=== PATIENT | male | born 1955 | race Two or more races ===

== ENCOUNTER 2017-11-06 13:22 | Inpatient (IN) | payer OTHER ==
[~2017-11-06] VITALS: Ht 177.8 cm; Wt 70.5 kg
[~2017-11-06 13:22] MED LIST: CEFTAROLINE; CHOL239. PO; DARB60VI SQ; DIAZ5VIA3 IV; ERGO500017 PO; PANT40VI IV; PRED20TA PO; SEVE2.4P NG; acyclovir
[2017-11-06] MEDS ORDERED: SODIUM CHLORIDE FLUSH 10ML SYR IVF ONE (14:00)
[2017-11-06 14:04] LABS: BASOPHILS # (AUTO) 0.02 x10^3/uL (0-0.1); BASOPHILS % (AUTO) 0 % (0-1); EOSINOPHILS # (AUTO) 0.01 x10^3/uL (0-0.4); EOSINOPHILS % (AUTO) 0 % (1-7); LYMPHOCYTES # (AUTO) 1.86 x10^3/uL (1-3.4); LYMPHOCYTES % (AUTO) 14 % (22-44); MD NO; MEAN CORPUSCULAR HEMOGLOBIN 33.3 pg (27.5-34.5); MEAN CORPUSCULAR HGB CONC 35.6 g/dL (33.2-36.2); MEAN CORPUSCULAR VOLUME 93.5 fL (81-97); MEAN PLATELET VOLUME 8.8 fL (7.4-10.4); MONOCYTES # (AUTO) 0.22 x10^3/uL (0.2-0.8); MONOCYTES % (AUTO) 2 % (2-9); NEUTROPHILS # (AUTO) 11.45 x10^3/uL (1.8-6.8); NEUTROPHILS % (AUTO) 85 % (42-75); PLATELET COUNT 233 x10^3/uL (130-400); RED BLOOD COUNT 3.51 x10^6/uL (4.38-5.82); RED CELL DISTRIBUTION WIDTH 12.7 % (9.4-14.8)
[2017-11-06 14:16] LABS: ALANINE AMINOTRANSFERASE 22 U/L (12-78); ALBUMIN 3.3 g/dL (3.4-5.0); ANION GAP 13 mmol/L (5-15); CHLORIDE 103 mmol/L (98-107); CREATININE 1.31 mg/dL (0.7-1.3)
[2017-11-06 14:17] LABS: ALKALINE PHOSPHATASE 93 U/L (45-117); BILIRUBIN,TOTAL 1.3 mg/dL (0.2-1.0); TOTAL PROTEIN 8.6 g/dL (6.4-8.2)
[2017-11-06 14:18] LABS: TROPONIN I < 0.015 ng/mL (0.000-0.045)
[2017-11-06 14:21] LABS: INTERNATIONAL NORMALIZED RATIO 1.15 (0.93-1.1); PROTHROMBIN TIME 11.9 Seconds (9.6-11.5)
[2017-11-06] MEDS ORDERED: CEFTRIAXONE 1,000 MG in SODIUM CHLORIDE 0.9% 50 ML IVPB ONE (14:30)
[2017-11-06] MEDS ORDERED: ASPIRIN 81 MG TABLET CHEW ONE (14:30)
[2017-11-06] MEDS ORDERED: SODIUM CHLORIDE 0.9% 1,000ML IVBOLUS ONE (14:30)
[2017-11-06] MEDS ORDERED: AZITHROMYCIN 500 MG in SODIUM CHLORIDE 0.9% 250 ML IVPB ONE (14:30)
[2017-11-06] MEDS ORDERED: ASPIRIN 81 MG TABLET CHEW PO ONE (14:30)
[2017-11-06] MEDS ORDERED: CEFTRIAXONE PMX 1GM/50ML 50 ML ONE (14:30)
[2017-11-06] MEDS ORDERED: SODIUM CHLORIDE FLUSH 10ML SYR IVF PRN (15:30)
[2017-11-06 16:51] VITALS: BP 106/68
[2017-11-06 16:59] VITALS: BP 106/68
[2017-11-06] MEDS ORDERED: ALBUTEROL/IPRATROPIUM 2.5MG/0.5MG, 3 ML ONE (17:45)
[2017-11-06] MEDS ORDERED: ONDANSETRON 2MG/ML, 2ML IVPush PRN (18:00)
[2017-11-06] MEDS ORDERED: LABETALOL 5MG/ML, 20ML IVPush PRN (18:00)
[2017-11-06] MEDS ORDERED: ALBUTEROL/IPRATROPIUM 2.5MG/0.5MG, 3 ML NPPB PRN (18:00)
[2017-11-06] MEDS ORDERED: POLYETHYLENE GLYCOL 17 GM PACKET PO PRN (18:00)
[2017-11-06] MEDS: SODIUM CHLORIDE 0.9% 1,000 ML IV SCH (18:08)
[2017-11-06] MEDS: DOXYCYCLINE 100 MG in DEXTROSE 5% 250 ML IV SCH (18:09)
[2017-11-06] MEDS: ENOXAPARIN 40 MG/0.4 ML SQ SCH (18:10)
[2017-11-06 18:46] LABS: % IRON SATURATION 11 % (20-55); IRON LEVEL 21 mcg/dL (65-175); TOTAL IRON BINDING CAPACITY 200 mcg/dL (250-450)
[2017-11-06 19:04] VITALS: BP 107/63
[2017-11-06] MEDS: ALBUTEROL/IPRATROPIUM 2.5MG/0.5MG, 3 ML NPPB SCH (21:00)
[2017-11-06] MEDS: HYDROcodone/CHLORPHENIR ORAL SUSP PO PRN (21:03)
[2017-11-06] MEDS: ZOLPIDEM 5MG TABLET PO PRN (21:03)
[2017-11-06] MEDS: morphine SULFATE 10 MG/ML, 1ML IVPush PRN (23:13)
[2017-11-07] MEDS ORDERED: OMNIPAQUE 350 MG/ML, 100ML BOTTLE ONE (01:43)
[2017-11-07 03:36] VITALS: BP 102/61
[2017-11-07] MEDS: morphine SULFATE 10 MG/ML, 1ML IVPush PRN (04:00)
[2017-11-07] MEDS: SODIUM CHLORIDE 0.9% 1,000 ML IV SCH ×2 (04:04→11:53)
[2017-11-07 05:34] LABS: CHLORIDE 108 mmol/L (98-107)
[2017-11-07 05:35] LABS: BASOPHILS # (AUTO) 0.03 x10^3/uL (0-0.1); BASOPHILS % (AUTO) 1 % (0-1); EOSINOPHILS # (AUTO) 0.07 x10^3/uL (0-0.4); EOSINOPHILS % (AUTO) 1 % (1-7); LYMPHOCYTES # (AUTO) 2.07 x10^3/uL (1-3.4); LYMPHOCYTES % (AUTO) 30 % (22-44); MD NO; MEAN CORPUSCULAR HEMOGLOBIN 32.9 pg (27.5-34.5); MEAN CORPUSCULAR HGB CONC 34.9 g/dL (33.2-36.2); MEAN CORPUSCULAR VOLUME 94.4 fL (81-97); MEAN PLATELET VOLUME 8.3 fL (7.4-10.4); MONOCYTES # (AUTO) 0.38 x10^3/uL (0.2-0.8); MONOCYTES % (AUTO) 6 % (2-9); NEUTROPHILS # (AUTO) 4.35 x10^3/uL (1.8-6.8); NEUTROPHILS % (AUTO) 63 % (42-75); PLATELET COUNT 157 x10^3/uL (130-400); RED BLOOD COUNT 2.58 x10^6/uL (4.38-5.82); RED CELL DISTRIBUTION WIDTH 13.1 % (9.4-14.8)
[2017-11-07 05:41] LABS: ANION GAP 9 mmol/L (5-15); CALCIUM 8.1 mg/dL (8.5-10.1); CREATININE 0.76 mg/dL (0.7-1.3)
[2017-11-07 05:42] LABS: ALANINE AMINOTRANSFERASE 22 U/L (12-78); ALBUMIN 2.3 g/dL (3.4-5.0); ALKALINE PHOSPHATASE 69 U/L (45-117); TOTAL PROTEIN 6.6 g/dL (6.4-8.2)
[2017-11-07] MEDS: DOXYCYCLINE 100 MG in DEXTROSE 5% 250 ML IV SCH ×2 (06:14→17:27)
[2017-11-07] MEDS: ALBUTEROL/IPRATROPIUM 2.5MG/0.5MG, 3 ML NPPB SCH ×4 (07:00→20:10)
[2017-11-07 07:02] VITALS: BP 94/52
[2017-11-07 12:20] VITALS: BP 97/55
[2017-11-07] MEDS: CEFTRIAXONE 1,000 MG in SODIUM CHLORIDE 0.9% 50 ML IV SCH (13:24)
[2017-11-07] MEDS: ACETAMINOPHEN 325 MG TABLET PO PRN ×2 (13:32→20:33)
[2017-11-07] MEDS: HYDROcodone/CHLORPHENIR ORAL SUSP PO PRN (13:32)
[2017-11-07] MEDS: BENZONATATE 100 MG CAPSULE PO SCH ×2 (17:26→20:33)
[2017-11-07] MEDS: ENOXAPARIN 40 MG/0.4 ML SQ SCH (17:27)
[2017-11-07 20:03] VITALS: BP 102/58
[2017-11-07] MEDS: ZOLPIDEM 5MG TABLET PO PRN (20:33)
[2017-11-08 00:22] VITALS: BP 110/71
[2017-11-08] MEDS: ACETAMINOPHEN 325 MG TABLET PO PRN (02:32)
[2017-11-08 05:35] LABS: BASOPHILS # (AUTO) 0.03 x10^3/uL (0-0.1); BASOPHILS % (AUTO) 1 % (0-1); EOSINOPHILS # (AUTO) 0.08 x10^3/uL (0-0.4); EOSINOPHILS % (AUTO) 2 % (1-7); LYMPHOCYTES # (AUTO) 1.35 x10^3/uL (1-3.4); LYMPHOCYTES % (AUTO) 31 % (22-44); MD NO; MEAN CORPUSCULAR HGB CONC 35.1 g/dL (33.2-36.2); MEAN CORPUSCULAR VOLUME 94.2 fL (81-97); MEAN PLATELET VOLUME 8.4 fL (7.4-10.4); MONOCYTES # (AUTO) 0.23 x10^3/uL (0.2-0.8); MONOCYTES % (AUTO) 5 % (2-9); NEUTROPHILS # (AUTO) 2.65 x10^3/uL (1.8-6.8); NEUTROPHILS % (AUTO) 61 % (42-75); PLATELET COUNT 163 x10^3/uL (130-400); RED BLOOD COUNT 2.64 x10^6/uL (4.38-5.82)
[2017-11-08 05:45] LABS: CHLORIDE 112 mmol/L (98-107)
[2017-11-08 05:53] LABS: ALBUMIN 2.3 g/dL (3.4-5.0); ANION GAP 12 mmol/L (5-15); CREATININE 0.67 mg/dL (0.7-1.3)
[2017-11-08] MEDS: DOXYCYCLINE 100 MG in DEXTROSE 5% 250 ML IV SCH ×2 (06:13→17:07)
[2017-11-08 06:40] VITALS: BP 96/62
[2017-11-08] MEDS: BENZONATATE 100 MG CAPSULE PO SCH ×3 (08:01→20:24)
[2017-11-08] MEDS: ALBUTEROL/IPRATROPIUM 2.5MG/0.5MG, 3 ML NPPB SCH ×4 (08:30→20:00)
[2017-11-08 12:15] VITALS: BP 112/70
[2017-11-08] MEDS: CEFTRIAXONE 1,000 MG in SODIUM CHLORIDE 0.9% 50 ML IV SCH (14:01)
[2017-11-08] MEDS: ENOXAPARIN 40 MG/0.4 ML SQ SCH (17:07)
[2017-11-08 19:47] VITALS: BP 115/72
[2017-11-08] MEDS: ZOLPIDEM 5MG TABLET PO PRN ×2 (20:24→22:17)
[2017-11-09 01:45] VITALS: BP 137/74
[2017-11-09 05:00] LABS: BASOPHILS # (AUTO) 0.04 x10^3/uL (0-0.1); BASOPHILS % (AUTO) 1 % (0-1); EOSINOPHILS # (AUTO) 0.12 x10^3/uL (0-0.4); EOSINOPHILS % (AUTO) 3 % (1-7); LYMPHOCYTES # (AUTO) 1.51 x10^3/uL (1-3.4); LYMPHOCYTES % (AUTO) 41 % (22-44); MD NO; MEAN CORPUSCULAR HEMOGLOBIN 32.2 pg (27.5-34.5); MEAN CORPUSCULAR HGB CONC 34.4 g/dL (33.2-36.2); MEAN CORPUSCULAR VOLUME 93.6 fL (81-97); MEAN PLATELET VOLUME 8.2 fL (7.4-10.4); MONOCYTES # (AUTO) 0.16 x10^3/uL (0.2-0.8); MONOCYTES % (AUTO) 4 % (2-9); NEUTROPHILS # (AUTO) 1.89 x10^3/uL (1.8-6.8); NEUTROPHILS % (AUTO) 51 % (42-75); PLATELET COUNT 197 x10^3/uL (130-400); RED BLOOD COUNT 2.74 x10^6/uL (4.38-5.82); RED CELL DISTRIBUTION WIDTH 12.9 % (9.4-14.8)
[2017-11-09 05:07] LABS: ALBUMIN 2.5 g/dL (3.4-5.0); ANION GAP 11 mmol/L (5-15); CALCIUM 8.5 mg/dL (8.5-10.1); CHLORIDE 113 mmol/L (98-107)
[2017-11-09 05:10] LABS: CREATININE 0.71 mg/dL (0.7-1.3)
[2017-11-09] MEDS: ALBUTEROL/IPRATROPIUM 2.5MG/0.5MG, 3 ML NPPB SCH ×4 (06:25→18:50)
[2017-11-09 07:41] VITALS: BP 128/71
[2017-11-09] MEDS ORDERED: POTASSIUM CHLORIDE 20 MEQ PACKET PO ONE (08:30)
[2017-11-09] MEDS: BENZONATATE 100 MG CAPSULE PO SCH ×3 (08:42→20:35)
[2017-11-09] MEDS: DOXYCYCLINE 100MG TABLET PO SCH ×2 (08:43→20:35)
[2017-11-09 14:00] VITALS: BP 138/70
[2017-11-09] MEDS: ENOXAPARIN 40 MG/0.4 ML SQ SCH (17:42)
[2017-11-09 19:52] VITALS: BP 134/73
[2017-11-09] MEDS: ZOLPIDEM 5MG TABLET PO PRN ×2 (20:38→22:04)
[2017-11-10 01:22] VITALS: BP 124/68
[2017-11-10 08:03] VITALS: BP 129/73
[2017-11-10] MEDS: BENZONATATE 100 MG CAPSULE PO SCH (08:19)
[2017-11-10] MEDS: DOXYCYCLINE 100MG TABLET PO SCH (08:19)
== END 2017-11-10 10:45 | disposition left against medical advice (07) | DRG 871 ==
LOC: ED 15:48 → EDIP 16:11 → 4EST 16:35
PROVIDERS: ADMIT Internal Medicine; ATTEND Hospitalist
DX: A41.9 Sepsis, unspecified organism (principal); J15.9 Unspecified bacterial pneumonia; N17.0 Acute kidney failure with tubular necrosis; E44.0 Moderate protein-calorie malnutrition; E87.2 Acidosis; J44.0 Chronic obstructive pulmonary disease with (acute) lower respiratory infection; D64.9 Anemia, unspecified; K74.60 Unspecified cirrhosis of liver; Z79.82 Long term (current) use of aspirin; Z87.891 Personal history of nicotine dependence; Z99.81 Dependence on supplemental oxygen; R91.1 Solitary pulmonary nodule; Z66 Do not resuscitate; Z88.1 Allergy status to other antibiotic agents; Z88.0 Allergy status to penicillin; F10.21 Alcohol dependence, in remission; Z53.21 Procedure and treatment not carried out due to patient leaving prior to being seen by health care provider; Z68.22 Body mass index [BMI] 22.0-22.9, adult
CPT/HCPCS: 36415; 99285; J7620; 71045; 71250; 71275; 80053; 80069; 83540; 83550; 83605; 83735; 84100; 84484; 85025; 85610; 85730; 87040; 93005; 93306; 94640; 96365; J0456; J0696; J1650; J7060; Q9967; J2270; J7030; J7050

== ENCOUNTER 2019-03-21 00:45 | Emergency (ER) | payer OTHER ==
[~2019-03-21] VITALS: Ht 177.8 cm; Wt 79.8 kg
--- NOTE | 2019-03-21 01:10 | NUR ---
PT C/O GLF, DENIES HITTING HEAD, C/O RIGHT FLANK PAIN WITH MOVEMENT. PT DENIES LOC, RAND, DIZZINESS. NO OTHER C/O AT THIS TIME. PT CONNECTED TO MONITORING. CALL LIGHT WITHIN REACH ALL SAFETY MEASURES IN PLACE.
[2019-03-21] MEDS ORDERED: ONDANSETRON 2MG/ML, 2ML ONE (01:22)
[2019-03-21] MEDS ORDERED: MORPHINE SULFATE 4 MG/ML, 1ML ONE ×3 (01:23→03:08)
[2019-03-21] MEDS ORDERED: SODIUM CHLORIDE FLUSH 10ML SYR IVF ONE (01:30)
[2019-03-21] MEDS ORDERED: ONDANSETRON 2MG/ML, 2ML IVPush ONE (01:30)
[2019-03-21] MEDS ORDERED: MORPHINE SULFATE 4 MG/ML, 1ML IVPush PRN (01:30)
[2019-03-21] MEDS ORDERED: OMNIPAQUE 350 MG/ML, 100ML BOTTLE ONE (02:40)
[2019-03-21 04:12] LABS: ALANINE AMINOTRANSFERASE 91 U/L (12-78); ALBUMIN 3.2 g/dL (3.4-5.0); ALKALINE PHOSPHATASE 103 U/L (45-117); ANION GAP 8 mmol/L (5-15); BILIRUBIN,TOTAL 0.9 mg/dL (0.2-1.0); CALCIUM 8.1 mg/dL (8.5-10.1); CHLORIDE 106 mmol/L (98-107); CREATININE 0.67 mg/dL (0.7-1.3); TOTAL PROTEIN 6.9 g/dL (6.4-8.2)
[2019-03-21 04:30] LABS: INTERNATIONAL NORMALIZED RATIO 1.22 (0.93-1.1); PROTHROMBIN TIME 12.7 Seconds (9.6-11.5)
[2019-03-21 04:31] LABS: MEAN CORPUSCULAR HEMOGLOBIN 37.7 pg (27.5-34.5); MEAN CORPUSCULAR HGB CONC 33.3 g/dL (33.2-36.2); MEAN PLATELET VOLUME 8.5 fL (7.4-10.4); PLATELET COUNT 114 x10^3/uL (130-400); RED BLOOD COUNT 2.96 x10^6/uL (4.38-5.82); RED CELL DISTRIBUTION WIDTH 13.5 % (9.4-14.8)
[2019-03-21 04:39] LABS: CULTURE INDICATED? NO; MICROSCOPIC NOT IND
--- NOTE | 2019-03-21 04:40 | NUR ---
POST DOWNTIME: SEE PAPER CHART PT GIVEN ADDITIONAL DOSE OF MORPHINE D/T 1010 PAIN, PT VSS TOLERATED WELL. PT REPORTS DECREASED PAIN TO 6/10. PT RESTING ON GURNEY. NEEDS MET AT THIS TIME. CALL LIGHT WITHIN REACH, SAFETY MEASURES IN PLACE.
--- NOTE | 2019-03-21 05:03 | NUR ---
PT PROVIDED INCENTIVE SPIROMETER VIA MD ORDER. PT EDUCATED ON HOW TO USE IS AND REASON FOR USE. PT VERBALIZED UNDERSTANDING.
[2019-03-21 05:31] VITALS: BP 124/65
--- NOTE | 2019-03-21 05:34 | NUR ---
TAXI VOUCHER PROVIDED FOR SAFE D/C HOME. PT REPORTS DECREASED PAIN, EDUCATED ON IMPORTANCE OF IS USE, ALCOHOL CESSATION AND CORRECT MEDICATION USE. PT VERBALIZED UNDERSTANDING.
[2019-03-21 05:49] LABS: HEMOGRAM NOTE RECHECKED; MD YES
[2019-03-21 05:52] LABS: <PLATELET ESTIMATE> DECREASED; <PLT MORPHOLOGY> NORMAL PLT MORPH; LYMPH#(MANUAL) 1.22 x10^3/uL (1-3.4); LYMPHS% (MANUAL) 37 % (22-44); MONOS% (MANUAL) 9 % (2-9); SEG#(MANUAL) 1.78 x10^3/uL (1.8-6.8); SEGS% (MANUAL) 54 % (42-75)
== END 2019-03-21 05:35 | disposition home or self-care (01) ==
LOC: ED 01:45
DX: S22.31XA Fracture of one rib, right side, initial encounter for closed fracture (principal); R93.5 Abnormal findings on diagnostic imaging of other abdominal regions, including retroperitoneum; R07.89 Other chest pain; R10.31 Right lower quadrant pain; K70.30 Alcoholic cirrhosis of liver without ascites; F10.129 Alcohol abuse with intoxication, unspecified; J44.9 Chronic obstructive pulmonary disease, unspecified; Z72.89 Other problems related to lifestyle; X58.XXXA Exposure to other specified factors, initial encounter; Y93.89 Activity, other specified; Y92.89 Other specified places as the place of occurrence of the external cause; Y99.8 Other external cause status; Y90.9 Presence of alcohol in blood, level not specified
CPT/HCPCS: 36415; 71045; 74177; 80053; 80307; 81003; 85025; 85610; 85730; 96374; 96375; 99284; J2270; J2405; Q9967

== ENCOUNTER 2019-05-10 00:09 | Emergency (ER) | payer OTHER ==
[~2019-05-10] VITALS: Ht 177.8 cm; Wt 75.0 kg
[2019-05-10] MEDS ORDERED: OXYcodone/APAP 10/325MG TABLET ONE (00:24)
[2019-05-10] MEDS ORDERED: OXYcodone/APAP 10/325MG TABLET PO ONE (00:30)
--- NOTE | 2019-05-10 01:25 | NUR ---
PATIENT TRANSFERRED TO [facility] FOR SPLEEN LAC. ACCEPTING ER DOC SANDERS. HURD ON SCENE AT THIS TIME.
[2019-05-10 01:30] VITALS: BP 105/60
[2019-05-10] MEDS ORDERED: SODIUM CHLORIDE 0.9% 1,000ML IVBOLUS ONE (01:30)
[2019-05-10] MEDS ORDERED: SODIUM CHLORIDE FLUSH 10ML SYR IVF ONE (01:30)
== END 2019-05-10 01:33 | disposition home or self-care (01) ==
LOC: ED 01:28
DX: S22.42XA Multiple fractures of ribs, left side, initial encounter for closed fracture (principal); S36.031A Moderate laceration of spleen, initial encounter; S39.91XA Unspecified injury of abdomen, initial encounter; J44.9 Chronic obstructive pulmonary disease, unspecified; Z87.891 Personal history of nicotine dependence; W01.0XXA Fall on same level from slipping, tripping and stumbling without subsequent striking against object, initial encounter; Y93.89 Activity, other specified; Y92.009 Unspecified place in unspecified non-institutional (private) residence as the place of occurrence of the external cause; Y99.8 Other external cause status
CPT/HCPCS: 71250; 99284; J7030

== ENCOUNTER 2019-08-17 11:10 | Emergency (ER) | payer MEDICARE, OTHER ==
[~2019-08-17] VITALS: Ht 175.3 cm; Wt 67.3 kg
--- NOTE | 2019-08-17 11:22 | NUR ---
ekg in triage
--- NOTE | 2019-08-17 11:58 | NUR ---
PT CAME IN CO OF TAKING A GLF FALL WHERE HE HIT IS FACE AND RIGHT SHOULDER AND HIP. PT HAS BRUISING ON FACE AND FOREHEAD. PT HAS BRUSING ON ARMS. DENIES LOC.
[2019-08-17] MEDS ORDERED: DIPHTHERIA-TETANUS ADULT 0.5ML IM-VACC ONE (12:00)
[2019-08-17] MEDS ORDERED: KETOROLAC 30 MG/1 ML IM ONE (12:00)
[2019-08-17] MEDS ORDERED: KETOROLAC 30 MG/1 ML ONE (12:00)
[2019-08-17 12:14] LABS: BASOPHILS # (AUTO) 0.02 x10^3/uL (0-0.1); BASOPHILS % (AUTO) 0 % (0-1); EOSINOPHILS # (AUTO) 0.04 x10^3/uL (0-0.4); EOSINOPHILS % (AUTO) 1 % (1-7); LYMPHOCYTES # (AUTO) 1.15 x10^3/uL (1-3.4); LYMPHOCYTES % (AUTO) 17 % (22-44); MD NO; MEAN CORPUSCULAR HEMOGLOBIN 34.3 pg (27.5-34.5); MEAN CORPUSCULAR HGB CONC 33.4 g/dL (33.2-36.2); MEAN CORPUSCULAR VOLUME 102.5 fL (81-97); MEAN PLATELET VOLUME 8.3 fL (7.4-10.4); MONOCYTES # (AUTO) 0.32 x10^3/uL (0.2-0.8); MONOCYTES % (AUTO) 5 % (2-9); NEUTROPHILS # (AUTO) 5.32 x10^3/uL (1.8-6.8); NEUTROPHILS % (AUTO) 78 % (42-75); PLATELET COUNT 186 x10^3/uL (130-400); RED BLOOD COUNT 2.69 x10^6/uL (4.38-5.82); RED CELL DISTRIBUTION WIDTH 15.9 % (9.4-14.8)
--- NOTE | 2019-08-17 12:20 | NUR ---
PT MEDICATED PER JUN. PT REFUSED TETNUS SAYS "I GOT THE TENTUS SHOT LAST YEAR"
[2019-08-17 12:24] LABS: ANION GAP 4 mmol/L (5-15); CALCIUM 8.8 mg/dL (8.5-10.1); CHLORIDE 107 mmol/L (98-107)
[2019-08-17 12:25] LABS: ALANINE AMINOTRANSFERASE 30 U/L (12-78); ALBUMIN 3.5 g/dL (3.4-5.0); INTERNATIONAL NORMALIZED RATIO 1.01 (0.93-1.1); PROTHROMBIN TIME 10.7 Seconds (9.6-11.5)
[2019-08-17 12:32] LABS: ALKALINE PHOSPHATASE 87 U/L (45-117); BILIRUBIN,TOTAL 1.1 mg/dL (0.2-1.0); TOTAL PROTEIN 7.1 g/dL (6.4-8.2)
--- NOTE | 2019-08-17 12:46 | NUR ---
PT TO CT AT THIS TIME
[2019-08-17] MEDS ORDERED: OMNIPAQUE 350 MG/ML, 100ML BOTTLE ONE (13:12)
--- NOTE | 2019-08-17 13:27 | NUR ---
PT RESTING IN [facility]. AWAITING CT RESULTS. NAD. VSS.
[2019-08-17] MEDS ORDERED: MORPHINE SULFATE 4 MG/ML, 1ML ONE (14:22)
[2019-08-17 14:25] VITALS: BP 116/72
--- NOTE | 2019-08-17 14:25 | NUR ---
PT EDUCATED ON PLAN OF CARE. MEDICATED PER MAR
[2019-08-17] MEDS ORDERED: MORPHINE SULFATE 4 MG/ML, 1ML IVPush ONE (14:30)
== END 2019-08-17 16:56 | disposition short-term general hospital (02) ==
LOC: ED 12:36
DX: S22.089A Unspecified fracture of T11-T12 vertebra, initial encounter for closed fracture (principal); S36.039A Unspecified laceration of spleen, initial encounter; S09.90XA Unspecified injury of head, initial encounter; R00.0 Tachycardia, unspecified; K80.80 Other cholelithiasis without obstruction; K74.60 Unspecified cirrhosis of liver; D53.9 Nutritional anemia, unspecified; J44.9 Chronic obstructive pulmonary disease, unspecified; Z87.891 Personal history of nicotine dependence; W18.30XA Fall on same level, unspecified, initial encounter; Y93.89 Activity, other specified; Y92.009 Unspecified place in unspecified non-institutional (private) residence as the place of occurrence of the external cause; Y99.8 Other external cause status
CPT/HCPCS: 36415; 70450; 71260; 72125; 74177; 80053; 80307; 85025; 85610; 93005; 96372; 96374; 99285; J1885; J2270; Q9967

== ENCOUNTER 2020-06-13 06:25 | Emergency (ER) | payer MEDICARE ==
[~2020-06-13] VITALS: Ht 177.8 cm; Wt 74.1 kg
--- NOTE | 2020-06-13 06:42 | NUR ---
assessment made. ERP at bedside.
--- NOTE | 2020-06-13 06:43 | NUR ---
laboratory tester at bedside.
[2020-06-13 07:04] LABS: MEAN CORPUSCULAR HEMOGLOBIN 41.2 pg (27.5-34.5); MEAN CORPUSCULAR HGB CONC 33.3 g/dL (33.2-36.2); PLATELET COUNT 214 x10^3/uL (130-400); RED BLOOD COUNT 1.66 x10^6/uL (4.38-5.82); RED CELL DISTRIBUTION WIDTH 16.4 % (9.4-14.8)
[2020-06-13 07:09] LABS: ALBUMIN 3.6 g/dL (3.4-5.0); ANION GAP 11 mmol/L (5-15); CALCIUM 8.7 mg/dL (8.5-10.1); CHLORIDE 109 mmol/L (98-107); CREATININE 0.98 mg/dL (0.7-1.3)
--- NOTE | 2020-06-13 07:30 | NUR ---
RECEIVED REPORT FROM FRANCISCA RN'S AT THIS TIME. CARE ASSUMED. VSS. DENIES ANY PAIN, CP, SOB, DIZZINESS, RAND. RESTING COMFORTABLY IN BED. DENIES URGE TO USE RESTROOM. IV PLACED PER MD FOR BLOOD TRANSFUSION. CRITICAL H&H 6.9, 20.6 REPORTED FROM LAB. DISCUSSED WITH ERP DR. LOYA, AWARE, TO TRANSFUSE BLOOD. PT AWAITING RECHECK BY PROVIDER. CALL LIGHT IN REACH. FALL PRECUATIONS IN PLACE. A&OX4.
[2020-06-13] MEDS ORDERED: ALBU8.5H8 INH (07:41)
[2020-06-13] MEDS ORDERED: INHALER INH (07:41)
--- NOTE | 2020-06-13 07:45 | NUR ---
PT GIVEN INFORMED CONSENT FOR BLOOD TRANSFUSION BY DR. LOYA, VERBALIZED UNDERSTANDING AND AGREES TO POC. CONSENT SIGNED BY PT, DR. LOYA AND THIS RN. PLACED ON PAPER CHART. BLOOD BANK CALLED, BLOOD IS READY. NO IV BLOOD Y-TUBING IN ER, REQUESTED FROM [facility]. AWAITING TUBING BEFORE BLOOD IS PICKED UP FROM BLOOD BANK DISCUSSED WITH DR. LOYA, SOCIAL WORKER PALLIATIVE CARE MARTHA, AND ED HELLEN WELLER.
[2020-06-13 07:54] LABS: MD YES
[2020-06-13 07:56] LABS: BAND#(MANUAL) 0.05 x10^3/uL; BANDS%(MANUAL) 1 % (0-7); LYMPHS% (MANUAL) 50 % (22-44); METAMYELOCYTES# (MANUAL) 0.26 x10^3/uL (0-0); METAMYELOCYTES% (MANUAL) 5 % (0-1); MONOS#(MANUAL) 0.21 x10^3/uL (0.3-2.7); MONOS% (MANUAL) 4 % (2-9); MYELOCYTES# (MANUAL) 0.26 x10^3/uL (0-0); MYELOCYTES% (MANUAL) 5 % (0-0); OTHER CELLS # (MANUAL) 0.05 x10^3/uL (0-0); REACTIVE LYMPHS # (MANUAL) 0.05 x10^3/uL (0-0); REACTIVE LYMPHS % (MANUAL) 1 % (0-0); SEG#(MANUAL) 1.72 x10^3/uL (1.8-6.8); SEGS% (MANUAL) 33 % (42-75)
[2020-06-13 08:00] LABS: OTHER CELLS % (MANUAL) 1 % (0-0)
[2020-06-13 08:01] LABS: <PLATELET ESTIMATE> ADEQUATE; <PLT MORPHOLOGY> NORMAL PLT MORPH; ANISOCYTOSIS 1+; OVALOCYTES 1+; POLYCHROMASIA 1+; STOMATOCYTES 1+
--- NOTE | 2020-06-13 08:09 | NUR ---
CONTINUE AWAITING BLOOD TUBING FROM [facility], DR. LOYA AWARE. C[facility]TRAL SUPPLY PAGED BY KNITTING DEMONSTRATOR. PT RESTING COMFORTABLY. DENIES ANY PAIN OR ANY OTHER SMPTOMS. VSS. CALL LIGHT IN REACH. FALL PRECAUTIONS IN PLACE. REMAINS A&OX4. DENIES URGE TO USE RESTROOM.
[2020-06-13 08:37] VITALS: BP 112/64
--- NOTE | 2020-06-13 08:39 | NUR ---
BLOOD TRANSFUSION STARTED NOTED ON TRANSFUSION RECORD. VERIFIED WITH MERLY RN AT BEDSIDE. PT A&OX4, RESTING COMFORTABLY, WATCHING TV. DENIES NEED TO USE RESTROOM. VSS. WILL CONTINUE TO MONITOR AT BEDSIDE. CALL LIGHT IN REACH. FALL PRECAUTIONS IN PLACE.
[2020-06-13 08:52] VITALS: BP 109/56
--- NOTE | 2020-06-13 08:53 | NUR ---
THIS RN REMAINS AT BEDSIDE FOR MONITORING. PT TOLERATING TRANSFUSION WELL, DENIES ANY S/S OF REACTION, NONE NOTED. IV SITE WITHOUT PAIN, REDNESS, SWELLING. PT REQUESTING WATER, PROVIDED PER DR. LAW MUSE, TOLERATING PO FLUIDS WELL. DENIES ANY PAIN OR NAUSEA. PT PROVIDED BLOOD TRANSFUSION EDUCATION HANDOUT WELL. LUNGS ASCULATED, NO CHANGES FROM PREVIOUSE ASSESSMENT. CLEAR, DIMINISHED AT BASES.
--- NOTE | 2020-06-13 08:58 | NUR ---
BEDSIDE REPORT AND TRANSFER OF CARE TO JOSÉ MIGUEL RN AT THIS TIME.
[2020-06-13 09:07] VITALS: BP 109/58
--- NOTE | 2020-06-13 09:12 | NUR ---
PT INFUSION INCREASED TO 200 ML/HR. NO S/S REACTION. WILL CONTINUE TO MONITOR.
[2020-06-13 10:07] VITALS: BP 128/71
[2020-06-13 10:55] VITALS: BP 115/63
[2020-06-13 11:28] VITALS: BP 122/57
== END 2020-06-13 11:46 | disposition home or self-care (01) ==
LOC: ED 08:13
DX: D53.9 Nutritional anemia, unspecified (principal); R00.0 Tachycardia, unspecified; J44.9 Chronic obstructive pulmonary disease, unspecified; Z90.89 Acquired absence of other organs
CPT/HCPCS: 36415; 36430; 80048; 82040; 85025; 86850; 86900; 86923; 99285; P9016

== ENCOUNTER 2020-07-25 05:30 | Emergency (ER) | payer MEDICARE ==
[~2020-07-25] VITALS: Ht 177.8 cm; Wt 75.1 kg
[2020-07-25] VITALS (8 sets, daily range): BP systolic 102–117; BP diastolic 55–70
[~2020-07-25 05:30] MED LIST changes: +ALBU8.5H8 INH; +INHALER INH
--- NOTE | 2020-07-25 05:55 | NUR ---
PT AMBULATED TO ROOM. APPEARS PALE TO VIEW, AND PT STATES HE IS PALE COMPARED TO NORMAL. PT HAS HISTORY OF BLOOD TRANSFUSIONS, AND PER PT, HIS HEMOGLOBIN IS 7.7 AND WAS TOLD TO COME IN BY HIS MD. PT PLACED ON CR MONITOR, AND IN GOWN AND AWAITING MD.
--- NOTE | 2020-07-25 06:00 | NUR ---
MD TO BEDSIDE TO EVAL PT. ORDERS RECEIVED, AND PIV STARTED TO RIGHT ACX1 ATTEMPT, WITH 20G CATH. BLOOD DRAWN FOR LAB TESTS AND GIVEN TO ARMAMENT MECHANIC WHO IS IN THE ROOM TO WITNESS THE TYPE AND CROSS. ALL LABS LABELED CORRECTLY AND SENT WITH ARMAMENT MECHANIC. PT TOLERATED WELL. PIV FLUSHED EASILY.
[2020-07-25 06:23] LABS: ANION GAP 8 mmol/L (5-15); CALCIUM 8.6 mg/dL (8.5-10.1); CHLORIDE 112 mmol/L (98-107); CREATININE 0.95 mg/dL (0.7-1.3)
--- NOTE | 2020-07-25 06:45 | NUR ---
REPORT TO CANDY CEJA
--- NOTE | 2020-07-25 07:23 | NUR ---
BLOOD BANK PURPLE SLIP SENT
--- NOTE | 2020-07-25 11:05 | NUR ---
PT REC'VD DISCHARGE INSTRUCTIONS AND EDUCATION. PT HAD NO FURTHER QUESTIONS. PT AMBULATED TO DC AREA, STEADY GAIT.
== END 2020-07-25 11:07 | disposition home or self-care (01) ==
LOC: ED 06:53
DX: D53.9 Nutritional anemia, unspecified (principal); R53.1 Weakness; J44.9 Chronic obstructive pulmonary disease, unspecified
CPT/HCPCS: 36415; 36430; 80048; 85014; 85018; 86850; 86900; 86923; 99285; P9016

== ENCOUNTER 2020-08-01 06:03 | Day surgery (SDC) | payer MEDICARE ==
[~2020-08-01] VITALS: Ht 177.8 cm; Wt 72.8 kg
[2020-08-01 07:36] LABS: BASOPHILS % (AUTO) 1 % (0-1); EOSINOPHILS % (AUTO) 0 % (1-7); LYMPHOCYTES % (AUTO) 23 % (22-44); MEAN CORPUSCULAR HEMOGLOBIN 37.3 pg (27.5-34.5); MEAN CORPUSCULAR HGB CONC 33.2 g/dL (33.2-36.2); MEAN PLATELET VOLUME 8.4 fL (7.4-10.4); MONOCYTES % (AUTO) 10 % (2-9); NEUTROPHILS % (AUTO) 67 % (42-75); PLATELET COUNT 170 x10^3/uL (130-400); RED CELL DISTRIBUTION WIDTH 21.5 % (9.4-14.8)
[2020-08-01 07:37] VITALS: BP 101/54
[2020-08-01 07:52] LABS: MD SCAN
[2020-08-01] MEDS ORDERED: NALOXONE 1 MG/ML, 2ML ONE (08:05)
[2020-08-01] MEDS ORDERED: FLUMAZENIL 0.1 MG/1 ML, 5ML ONE (08:05)
[2020-08-01] MEDS ORDERED: MIDAZOLAM 1 MG/ML, 5ML ONE (08:05)
[2020-08-01] MEDS ORDERED: FENTANYL PF 100 MCG/2ML ONE (08:05)
== END 2020-08-01 09:30 | disposition home or self-care (01) ==
LOC: OUT 06:03
PROVIDERS: ATTEND Pathology Hematology
DX: E83.119 Hemochromatosis, unspecified (principal); D64.9 Anemia, unspecified; J43.9 Emphysema, unspecified; F10.21 Alcohol dependence, in remission; Z88.0 Allergy status to penicillin; Z88.1 Allergy status to other antibiotic agents; Z79.899 Other long term (current) drug therapy; Z72.89 Other problems related to lifestyle; Z90.49 Acquired absence of other specified parts of digestive tract; Z98.890 Other specified postprocedural states; Z87.891 Personal history of nicotine dependence
CPT/HCPCS: 36415; 38222; 77012; 85025; 85060; 85097; 88237; 88264; 88280; 88305; 88311; 88313; 88360; 99156; 99157; J2250; J3010; J2310

== ENCOUNTER 2020-08-06 10:27 | Day surgery (SDC) | payer MEDICARE ==
[~2020-08-06] VITALS: Ht 177.8 cm; Wt 71.4 kg
[2020-08-06 10:50] VITALS: BP 114/94
[2020-08-06] MEDS ORDERED: LACTATED RINGERS 1,000 ML IV SCH (11:00)
[2020-08-06] MEDS ORDERED: CHLORHEXIDINE 15 ML UDC PO ONE (11:00)
[2020-08-06] MEDS ORDERED: PROPOFOL 50 ML ONE (11:09)
[2020-08-06] MEDS ORDERED: PROPOFOL 10 MG/ML, 20ML ONE (11:09)
[2020-08-06] MEDS ORDERED: TRAMADOL (11:11)
[2020-08-06] MEDS ORDERED: TRILOGY (11:11)
[2020-08-06 11:19] LABS: ABSOLUTE RETICS # 0.086 x10^6/uL (0.5-1.5); RED BLOOD COUNT 2.57 x10^6/uL (4.38-5.82); RETICULOCYTE COUNT % 3.34 % (0.5-1.5)
== END 2020-08-06 12:36 | disposition home or self-care (01) ==
LOC: OUT 10:27
PROVIDERS: ATTEND Internal Medicine Gastroenterology
DX: D64.9 Anemia, unspecified (principal); K20.90 Esophagitis, unspecified without bleeding; K22.70 Barrett's esophagus without dysplasia; K29.50 Unspecified chronic gastritis without bleeding; K44.9 Diaphragmatic hernia without obstruction or gangrene; K29.80 Duodenitis without bleeding; K70.30 Alcoholic cirrhosis of liver without ascites; Z20.822 Contact with and (suspected) exposure to COVID-19; Z79.899 Other long term (current) drug therapy; Z87.891 Personal history of nicotine dependence; Z88.0 Allergy status to penicillin; Z90.49 Acquired absence of other specified parts of digestive tract; Z96.651 Presence of right artificial knee joint
CPT/HCPCS: 36415; 43239; 85045; 87635; 88305; 93005; J2704; J7120

== ENCOUNTER 2020-09-29 09:49 | Day surgery (SDC) | payer MEDICARE ==
[~2020-09-29] VITALS: Ht 177.8 cm; Wt 69.0 kg
[~2020-09-29 09:49] MED LIST changes: +PARO10TA56 PO; +TRAMADOL; +TRILOGY
[2020-09-29] MEDS ORDERED: FLUMAZENIL 0.1 MG/1 ML, 5ML ONE (10:07)
[2020-09-29] MEDS ORDERED: NALOXONE 1 MG/ML, 2ML ONE (10:07)
[2020-09-29] MEDS ORDERED: FENTANYL PF 100 MCG/2ML ONE (10:07)
[2020-09-29] MEDS ORDERED: MIDAZOLAM 1 MG/ML, 5ML ONE (10:07)
[2020-09-29 10:47] VITALS: BP 109/69
[2020-09-29] MEDS ORDERED: SODIUM CHLORIDE 0.9% 1,000 ML IV SCH (11:00)
[2020-09-29] MEDS ORDERED: LACTATED RINGERS 1,000 ML IV SCH (11:00)
[2020-09-29] MEDS ORDERED: LIDOCAINE-MPF 1%, 5ML ONE ×2 (11:23)
[2020-09-29] MEDS ORDERED: LIDOCAINE 1%, 20ML ONE ×2 (11:23→12:43)
[2020-09-29] MEDS ORDERED: DIPHENHYDRAMINE 50 MG/ML, 1ML ONE (12:48)
[2020-09-29] MEDS ORDERED: HYDROcodone/APAP 5/325 TABLET PO PRN (14:00)
== END 2020-09-29 15:10 | disposition home or self-care (01) ==
LOC: RAD 09:49
PROVIDERS: ATTEND Pathology Hematology
DX: D46.0 Refractory anemia without ring sideroblasts, so stated (principal); J44.9 Chronic obstructive pulmonary disease, unspecified; K70.10 Alcoholic hepatitis without ascites; K70.30 Alcoholic cirrhosis of liver without ascites; Z79.899 Other long term (current) drug therapy; Z87.891 Personal history of nicotine dependence; Z88.0 Allergy status to penicillin; Z88.1 Allergy status to other antibiotic agents; Z90.49 Acquired absence of other specified parts of digestive tract; Z98.890 Other specified postprocedural states
CPT/HCPCS: 36561; 76937; 77001; 99156; 99157; C1788; C1894; J1200; J1642; J2250; J3010; J7030; J2310

== ENCOUNTER 2020-11-07 18:15 | Emergency (ER) | payer MEDICARE ==
[~2020-11-07] VITALS: Ht 177.8 cm; Wt 72.0 kg
[~2020-11-07 18:15] MED LIST changes: +ALLO100T30 PO; +PRED5TAB25 PO
--- NOTE | 2020-11-07 18:22 | NUR ---
Pt taken right back to trauma 4.
[2020-11-07] MEDS ORDERED: OMNIPAQUE 350 MG/ML, 100ML BOTTLE ONE (18:36)
--- NOTE | 2020-11-07 18:40 | NUR ---
RECEIVED REPORT FROM BRENNA DUKE. PT MOVED TO ROOM 25 W/ ALL PERSONAL BELONGINGS. PT RESTING ON [facility].
[2020-11-07 18:54] LABS: BASOPHILS % (AUTO) 1 % (0-1); EOSINOPHILS % (AUTO) 1 % (1-7); LYMPHOCYTES % (AUTO) 40 % (22-44); MEAN CORPUSCULAR HEMOGLOBIN 37.2 pg (27.5-34.5); MEAN PLATELET VOLUME 8.1 fL (7.4-10.4); MONOCYTES % (AUTO) 4 % (2-9); NEUTROPHILS % (AUTO) 54 % (42-75); PLATELET COUNT 237 x10^3/uL (130-400); RED BLOOD COUNT 2.43 x10^6/uL (4.38-5.82); RED CELL DISTRIBUTION WIDTH 27.5 % (9.4-14.8)
[2020-11-07] MEDS ORDERED: SODIUM CHLORIDE FLUSH 10ML SYR IVF ONE (19:00)
[2020-11-07 19:06] LABS: ALANINE AMINOTRANSFERASE 33 U/L (12-78); ALBUMIN 3.6 g/dL (3.4-5.0); ANION GAP 8 mmol/L (5-15); CHLORIDE 102 mmol/L (98-107); CREATININE 0.63 mg/dL (0.7-1.3)
[2020-11-07 19:09] LABS: ALKALINE PHOSPHATASE 82 U/L (45-117); BILIRUBIN,TOTAL 1.4 mg/dL (0.2-1.0); TOTAL PROTEIN 7.1 g/dL (6.4-8.2)
--- NOTE | 2020-11-07 19:44 | NUR ---
PT RESTING ON GURNEY. NADN. VILL[place].
--- NOTE | 2020-11-07 20:03 | NUR ---
PT CHART REVIEWED AND PLACED FOR RECHECK.
--- NOTE | 2020-11-07 20:37 | NUR ---
PT RESTING ON GURNEY. NADN. VILL[place].
[2020-11-07] MEDS ORDERED: CLINDAMYCIN PMX 600MG/50ML 50 ML ONE (20:40)
--- NOTE | 2020-11-07 20:52 | NUR ---
REPORT GIVEN TO BRENNA ESTRADA.
[2020-11-07] MEDS ORDERED: CLINDAMYCIN PMX 600MG/50ML 50 ML IV ONE (21:00)
[2020-11-07] MEDS ORDERED: SODIUM CHLORIDE 0.9% 1,000ML IVBOLUS ONE (21:00)
--- NOTE | 2020-11-07 21:01 | NUR ---
PT BP NOTED TO BE TRENDING DOWN W/ LAST BP NOTED TO BE 98/48 PRIOR TO STARTING IV ABX W/ LACTIC ACID ALSO NOTED TO BE 3.1. IV ABX INITIATED AND ERP DR. LOYA NOTIFIED. NEW ORDERS PLACED. PT MEDICATED PER JUN. NATALIE, PRIMARY RN NOTIFIED.
--- NOTE | 2020-11-07 21:13 | NUR ---
ERMD AT BEDSIDE TO UPDATE PT ON POC.
[2020-11-07 21:34] VITALS: BP 105/55
--- NOTE | 2020-11-07 21:37 | NUR ---
IVF AND ABX COMPLETE. CHART UP FOR RECHECK. PT REFUSING TO BE ADMIT.
== END 2020-11-07 22:00 | disposition home or self-care (01) ==
LOC: ED 19:15
DX: L03.221 Cellulitis of neck (principal); R94.31 Abnormal electrocardiogram [ECG] [EKG]; J44.9 Chronic obstructive pulmonary disease, unspecified; Z90.89 Acquired absence of other organs; Z87.891 Personal history of nicotine dependence
CPT/HCPCS: 36415; 70491; 80053; 83605; 84145; 85025; 87040; 93005; 96365; 99285; J7030; Q9967